=== PATIENT | male | born 1960 | race American Indian/Alaskan Native ===

== ENCOUNTER 2017-05-24 14:52 | Emergency (ER) | payer SELFPAY ==
[2017-05-24 16:29] LABS: Basophils # (Auto) 0.1 K/mm3 (0.0-0.1); Basophils % (Auto) 0.7 % (0.0-1.8); Eosinophils % (Auto) 0.1 % (0.0-4.3); Hematocrit 46.2 % (35.5-45.6); Hemoglobin 15.1 gm/dl (11.8-15.2); Lymphocytes # (Auto) 0.7 K/mm3 (1.2-5.4); Lymphocytes % (Auto) 8.6 % (13.4-35.0); Mean Corpuscular HGB Conc 33 % (32-34); Mean Corpuscular Hemoglobin 27 pg (28-32); Mean Corpuscular Volume 81 fl (84-94); Monocytes # (Auto) 0.4 K/mm3 (0.0-0.8); Monocytes % (Auto) 4.8 % (0.0-7.3); Platelet Count 206 K/mm3 (140-440); Red Blood Count 5.67 M/mm3 (3.65-5.03); Red Cell Distribution Width 15.6 % (13.2-15.2)
[2017-05-24 16:56] LABS: BUN/Creatinine Ratio 14; Blood Urea Nitrogen 10 mg/dL (9-20); Hemolysis Index 7
[2017-05-24] MEDS ORDERED: VASOTEC IV ONE (17:00)
--- NOTE | 2017-05-24 17:00 | Cat Scan Report ---
FINAL REPORT EXAM: CT HEAD/BRAIN WO CON HISTORY: head pain TECHNIQUE: CT of the Head without IV contrast. PRIORS: None currently available. FINDINGS: 1.5 x 3.0 Cm right medial superior cerebellar bleed extends into the 4th ventricle and into the subarachnoid spaces via the median and both lateral apertures. Blood extends superiorly along aqueduct into the inferior 3rd ventricle. No hydrocephalus. Surrounding cytotoxic edema is minimal. Minimal mass effect identified. No tonsillar herniation is noted. Basilar cisterns remain patent. No significant hydrocephalus. Differential diagnosis would include hemorrhagic mass but this seems less likely. Small colloid plexus calcification or colloid cyst at the foramen of Monro. There is no evidence for acute ischemia. There is no midline shift. Age appropriate carcamo-white matter attenuation is noted. There is no calvarial fracture. The temporal bones demonstrate aerated mastoid air cells. The middle ears appear unremarkable. Osseous wall thickening and moderate mucosal thickening of the right maxillary sinus. Small air-fluid level also noted. [id number] mucosal thickening in the ethmoid sinuses. Globes are intact. IMPRESSION: Right superior cerebellar intra-axial hemorrhage extending into the 4th ventricle and into the subarachnoid space through the 4th ventricle apertures and also into the 3rd ventricle. May 24, 2017 at 1354 PST: I discussed the findings over phone with Dr. Baptiste.
--- NOTE | 2017-05-24 17:01 | Emergency Department Report ---
HPI - General Chief Complaint: Nausea/Vomiting/Diarrhea Time Seen by Provider: 05/24/17 16:22 - HPI HPI: 56-year-old -[place] male presents to the ED with severe dizziness, weakness, his redness is worse on the left side. No slurred speech. Symptoms started about 3 hours ago. Patient with history of blood pressure noncompliant with medications. He denies any chest pain, shortness of breath, he does however have nausea, vomiting 1. ED Past Medical Hx - Past Medical History Hx Hypertension: Yes Hx Diabetes: Yes - Surgical History Hx Appendectomy: Yes - Social History Smoking Status: Never Smoker Substance Use Type: None - Medications Home Medications: Home Medications Medication Instructions Recorded Confirmed Last Taken Type Lisinopril/Hydrochlorothiazide 1 each PO BID #60 tablet 11/17/14 11/29/14 Unknown Rx [Zestoretic 20-25 mg] amLODIPine [Norvasc] 10 mg PO DAILY #30 tablet 11/17/14 11/29/14 Unknown Rx metFORMIN [Glucophage] 1,000 mg PO BID #60 tablet 11/17/14 11/29/14 Unknown Rx ED Review of Systems ROS: Stated complaint: ETOH Other details as noted in HPI Physical Exam - Physical Exam Vital Signs: Vital Signs 05/24/17 05/24/17 05/24/17 15:33 15:45 15:55 Temperature 97.4 F L Pulse Rate 75 74 Respiratory 12 22 12 Rate Blood Pressure 183/86 [Right] O2 Sat by Pulse 97 91 97 Oximetry Physical Exam: Gen. alert and oriented 3 in no distress Head atraumatic normocephalic Eyes PERR LA EOMI Chest regular rate and rhythm normal S1-S2 lungs clear bilaterally Abdomen soft nondistended Back no point tenderness paravertebral tenderness Neuro motor strength decreased on left side, 3 out of 5. Awake, arousable, however mild lethargy. Psych normal mood. NIH stroke scale 1 GCS 15 ED Course Vital Signs 05/24/17 05/24/17 05/24/17 15:33 15:45 15:55 Temperature 97.4 F L Pulse Rate 75 74 Respiratory 12 22 12 Rate Blood Pressure 183/86 [Right] O2 Sat by Pulse 97 91 97 Oximetry - Reevaluation(s) Reevaluation #1: 05/24/17 18:28 Patient transferred to [facility] for acute superior cerebellar bleed. ED Medical Decision Making - Lab Data Result diagrams: 05/24/17 16:08 05/24/17 16:08 - EKG Data Interpretation: no acute changes Critical Care Time: Yes Critical care attestation.: If time is entered above; I have spent that time in minutes in the direct care of this critically ill patient, excluding procedure time. ED Disposition Clinical Impression: Hemorrhagic stroke Disposition: [id number] ANOTHER TYPE HLTHCARE Is pt being admited?: No Does the pt Need Aspirin: No Condition: Critical Referrals: PRIMARY CARE, [Primary Care Provider] - 3-5 Days
[2017-05-24] MEDS: VASOTEC IV ONE ×2 (17:06→17:16)
[2017-05-24 17:30] LABS: Bilirubin,Urine NEG (Negative); Blood,Urine SM (Negative); Color,Urine Straw (Yellow); Protein,Urine <15 mg/dL mg/dL (Negative); Urobilinogen,Urine < 2.0 mg/dL (<2.0)
[2017-05-24 17:40] LABS: Amphetamine Screen,Urine PRESUMPTIVE NEGATIVE; Benzodiazepines Screen,Urine PRESUMPTIVE NEGATIVE; Cannabinoid Screen,Urine PRESUMPTIVE NEGATIVE; Methadone Screen,Urine PRESUMPTIVE NEGATIVE; Opiate Screen,Urine PRESUMPTIVE NEGATIVE
[2017-05-24 17:53] LABS: Cocaine Screen,Urine PRESUMPTIVE POSITIVE
[2017-05-24] MEDS ORDERED: CARDENE 50 MG in NACL 0.9% 250ML 230 ML IV SCH (18:00)
[2017-05-24 19:35] VITALS: BP 181/82
[2017-05-24 19:37] LABS: INR 1.03 (0.87-1.13)
[2017-05-24 19:39] LABS: Partial Thromboplastin Time 29.3 Sec. (24.2-36.6)
== END 2017-05-24 19:36 | disposition other institution (70) ==
LOC: ED 14:52
DX: I62.9 Nontraumatic intracranial hemorrhage, unspecified (principal); I10 Essential (primary) hypertension; E11.9 Type 2 diabetes mellitus without complications; Z79.899 Other long term (current) drug therapy
CPT/HCPCS: 36415; 70450; 80048; 80307; 81001; 83036; 85025; 85610; 85730; 93005; 93010; 96365; 96375; 99285; G0480; J7050; 80320